=== PATIENT | female | born 1995 | race Caucasian/White ===

== ENCOUNTER 2021-12-06 08:38 | Emergency (ER) | payer SELFPAY ==
[2021-12-06 08:44] VITALS: BP 148/90; PULSE 105; RESP 18; TEMP 36.9; O2SAT 98; BMI 31.1
[2021-12-06 09:54] LABS: COVID-19 Test Negative (Negative)
[2021-12-06 09:58] LABS: Influenza A Positive (Negative); Influenza B2 Negative (Negative)
--- NOTE | 2021-12-06 09:58 | ED_ITS ---
HPI - General Adult General Chief complaint: General Medical Stated complaint: sore throat Time Seen by Provider: 12/06/21 09:27 Source: patient Mode of arrival: ambulatory Limitations: no limitations History of Present Illness HPI narrative: 26-year-old female presents to the ED for sore throat since yesterday. Patient states her daughter and also have sore throat. Patient states she is not vaccinated. Patient denies any chest pain, shortness of breath, coughing, abdominal pain, diarrhea, leg swelling, calf pain, weakness, dizziness, or any other concerning symptoms. Related Data Previous Rx's Medication Instructions Recorded oseltamivir 75 mg capsule (Tamiflu) 75 mg PO BID 5 Days #10 cap 12/06/21 Allergies Allergy/AdvReac Type Severity Reaction Status Date / Time No Known Allergies Allergy Unverified 06/10/20 17:41 Review of Systems Review of Systems: Sore throat Yes all other systems are reviewed and are negative PMFSH Social History Social History Advance Directives: No Advance Directives Information Provided: No Patient : No Physical Exam ED Vital Signs: Vital Signs - 24 hr 12/06/21 08:44 Temperature 98.5 F Pulse Rate 105 H Respiratory Rate 18 Blood Pressure 148/90 H Pulse Oximetry 98 BMI result Body Mass Index 31.1 Const General: cooperative, healthy appearing, comfortable, no acute distress, well developed, alert, awake and Physically active Orientation/consciousness: patient oriented x3 HENMT Head: Yes normal to inspection, Yes No palpable skull fracture present, Yes normocephalic and Yes atraumatic Ears: hearing grossly normal bilaterally, external ears normal, TM's normal bilaterally, EAC's normal, mastoids normal and no periauricular adenopathy Throat: Yes posterior oropharynx normal, Yes tonsils normal and Yes uvula midline Eyes General: appearance normal, both eyes and all related structures Neck Neck: Yes normal visual inspection, Yes full ROM, Yes no lymphadenopathy, Yes no meningeal signs, Yes trachea midline, Yes supple, No anterior neck swelling and No tender Chest Chest palpation & inspection: normal inspection of the chest and normal palpation of entire chest wall Resp Effort & Inspection: normal respiratory effort and able to speak in complete sentences Auscultation: clear to auscultation bilaterally Cardio Jugular venous distension: no JVD Heart sounds: S1 normal heart sound present and S2 normal heart sound present GI Inspection: Yes normal to inspection and No abdominal wall ecchymosis Palpation (GI): Soft to palpation, not firm, nontender, no guarding and not rigid General: No CVA tenderness and Yes no CVA tenderness Back/Spine/Pelvis Back: no CVA tenderness, No CVA tenderness and No back tenderness Skin General skin exam: no rashes or lesions noted and elasticity normal Neuro General: patient oriented x3, gait normal and no meningeal signs Cranial nerves: Yes CN's II-XII intact bilaterally Extrem General: Yes normal to inspection and Yes full ROM Psych Appearance: grossly normal, well kempt and not disheveled Course Course Course Narrative: patient well-appearing. Will order SARS and strep. Reevaluation(s) Reevaluation #1: influenza positive. Patient well-appearing. Patient educated on oral hydration and rest with pain/Tylenol for fever/ pain relief. Time: 10:37 Medical Decision Making MDM Narrative Medical decision making narrative: INfluenza A Lab Data Labs: Lab Results 12/06/21 12/06/21 12/06/21 Range/Units 08:57 08:57 09:41 COVID-19 ([facility]) Negative (Negative) COVID-19 Clin Com See Note Influenza Type A (DEE) Positive A (Negative) Influenza Type B (DEE) Negative (Negative) Influenza A & B Note See Note S. pyogenes GrpA DEE Negative (Negative) Discharge Plan Discharge Clinical Impression: Influenza A Patient Disposition: Home, Self-Care Instructions: Influenza (ED) Additional Instructions: you are positive for influenza. Return to the ED for any chest pain, shortness of breath, weakness, dizziness, diarrhea, decreased oral/ liquid intake. Abdominal pain, or any other concerning symptoms. Please follow-up with primary care provider Prescriptions: New oseltamivir [Tamiflu] 75 mg capsule 75 mg PO BID 5 Days Qty: 10 0RF Stand Alone Forms: Work/School Release Interventions: ED Discharge Assessment Last Done: 12/06/21 10:47 Discharge Date/Time: 12/06/21 10:47 Print Language: Icelandic
[2021-12-06 10:09] LABS: Strep A Nucleic Acid Negative (Negative)
== END 2021-12-06 10:47 | disposition home or self-care (01) ==
PROVIDERS: Physician Assistant; Emergency Provider Emergency Medicine
DX: J11.1 Influenza due to unidentified influenza virus with other respiratory manifestations (principal); J02.9 Acute pharyngitis, unspecified; Z20.822 Contact with and (suspected) exposure to COVID-19
CPT/HCPCS: 36415; 87502; 87635; 87651; 99283

== ENCOUNTER 2022-04-05 14:25 | Emergency (ER) | payer SELFPAY ==
--- NOTE | ~2022-04-05 | US_ITS ---
EXAMINATION: US pelvic limited CLINICAL INFORMATION: Reason for Exam Left pelvic pain, suprapubic discomfort COMPARISON: None. TECHNIQUE: Transabdominal followed by transvaginal pelvic ultrasound was performed. FINDINGS: Uterus is anteverted measuring 7.6 x 3.5 x 3.9 cm in sagittal, AP, transverse dimensions. Poorly marginated approximately 2 x 1.4 x 1.6 cm probable intramural uterine fibroid noted posteriorly slightly indenting upon the posterior aspect of the endometrial stripe. No other fibroids are seen. Endometrial thickness measures 0.6 cm. Right ovary measures 2.1 x 1.8 x 1.8 cm in size of the volume of 3.7 mL. Left ovary measures 2.3 x 1.9 x 2.5 cm with volume of 5.7 mL. Left ovary contains a small 1.2 cm hypoechoic follicle. Normal dopplerable flow detected in both ovaries. No free pelvic fluid. US/US pelvic limited IMPRESSION: 1. Endometrial thickness of 0.6 cm. 2. Suspected poorly marginated intramural uterine fibroid slightly indenting upon the posterior endometrial cavity measuring approximately2 cm in size. 3. Normal ovaries. No free fluid.
[2022-04-05 15:44] VITALS: BP 147/84; PULSE 63; RESP 18; TEMP 37; O2SAT 99; BMI 30.2
[2022-04-05 16:09] LABS: MANUAL DIFF FLAG NO
[2022-04-05 16:11] LABS: Basophils Percent Auto 0.3 % (0-2); Eosinophils Percent Auto 0.2 % (0-4); Hematocrit 41.5 % (37.0-47.0); Hemoglobin 13.4 g/dl (12.0-16.0); Imm Gran Abs Auto 0.05 X10*3/uL (0.00-0.03); Imm Gran Pct Auto 0.4 % (0.0-0.4); Lymphocytes Absolute Auto 2.3 X10*3/uL (1.2-4.9); Lymphocytes Percent Auto 20.5 % (20-40); Mean Corpuscular HGB Conc 32.3 g/dl (31.0-35.0); Mean Corpuscular Hemoglobin 27.6 pg (27.0-33.0); Mean Corpuscular Volume 85.4 fL (80.0-98.0); Mean Platelet Volume 10.5 fL (9.4-12.3); Monocytes Absolute Auto 0.8 X10*3/uL (0.1-1.2); Monocytes Percent Auto 7.2 % (2-11); Neutrophils Absolute Auto 8.2 x10*3/uL (2.0-8.3); Neutrophils Percent Auto 71.4 % (45-73); Platelet Count 248 X10*3/uL (160-400); Red Blood Count 4.86 X10*6/uL (4.20-5.50); Red Cell Distribution Width 13.3 % (11.0-16.0); White Blood Count 11.4 X10*3/uL (4.8-10.8)
[2022-04-05 16:12] LABS: Appearance Urine HAZY; Color Urine YELLOW; Glucose Urine UA NEG (NEG); Leukocyte Esterase Urine 1+ (NEG); Nitrite Urine NEG (NEG); PH 5.5 (5.0-8.0); UACC Culture Trigger YES; Urine Blood TRACE (NEG); Urine Ketones 15 MG/DL (NEG); Urine Protein 1+ MG/DL (NEG-TRACE)
[2022-04-05 16:13] LABS: UPreg QC Valid YES; Urine Pregnancy NEGATIVE (NEGATIVE)
[2022-04-05 16:22] LABS: Bacteria Urine 1+ /LPF; Mucus Urine 1+ /LPF; Squamous Epithelial Cell Urine 1+ /LPF
[2022-04-05 16:23] LABS: RBC Urine 0-2 /HPF (0)
[2022-04-05 16:27] LABS: Alanine Aminotransferase 10 U/L (0-31); Albumin Level 4.7 g/dL (3.5-5.0); Alkaline Phosphatase 65 U/L (39-117); Anion Gap 14 (12-20); Aspartate Amino Transferase 13 U/L (5-31); Bilirubin Total 1.3 mg/dL (0.0-1.0); Blood Urea Nitrogen 13 mg/dL (9-16); Calcium 9.2 mg/dL (8.4-10.2); Carbon Dioxide 26 mmol/L (22-29); Chloride 104 mmol/L (96-108); Creatinine Clr Calc Pharmacy 108.8; Estimated Glomerular Filt Rate > 60; Glucose Random 95 mg/dL (60-115); Potassium 3.8 mmol/L (3.3-5.1); Sodium 140 mmol/L (135-145); Total Protein 7.9 g/dL (6.5-8.0)
[2022-04-05 18:37] VITALS: BP 145/85; PULSE 72; RESP 18; TEMP 36.4; O2SAT 98
--- NOTE | 2022-04-05 18:38 | ED_ITS ---
HPI - Abdominal Pain General Chief Complaint: Abdominal Pain Stated Complaint: abd pain Time Seen by Provider: 04/05/22 18:09 Source: patient Mode of arrival: ambulatory Limitations: no limitations History of Present Illness HPI narrative: 26-year-old female healthy presents with 3 days of lower abdominal cramping. No nausea, vomiting, diarrhea, urinary symptoms, fevers or chills. No vaginal discharge, rashes or lesion. Related Data Previous Rx's Medication Instructions Recorded oseltamivir 75 mg capsule (Tamiflu) 75 mg PO BID 5 days #10 caps 12/06/21 fluconazole 150 mg tablet 150 mg PO Q3D 2 doses #2 tabs 04/05/22 (Diflucan) metronidazole 500 mg tablet 500 mg PO BID 7 days #14 tabs 04/05/22 nitrofurantoin 100 mg PO Q12H 5 days #10 caps 04/05/22 monohydrate/macrocrystals 100 mg capsule (Macrobid) Allergies Allergy/AdvReac Type Severity Reaction Status Date / Time No Known Allergies Allergy Verified 04/05/22 15:43 Review of Systems Review of Systems Yes all other systems are reviewed and are negative Constitutional: Reports no additional constitutional complaints, Denies body ache(s), Denies chills, Denies fever(s), Denies headache(s) and Denies weakness Eyes: Reports no additional eye complaints and Denies change in vision Reports system reviewed and no additional complaints, except as documented, Denies dizziness, Denies headache(s), Denies nasal congestion, Denies nasal discharge and Denies neck pain Cardiovascular: Reports no additional cardiovascular complaints, Denies chest pain, Denies leg edema and Denies dyspnea Respiratory: Reports no additional respiratory complaints, Denies cough and Denies dyspnea Gastrointestinal: Reports no additional gastrointestinal complaints, Reports abd ominal pain, Denies diarrhea, Denies nausea and Denies vomiting Genitourinary: Reports no additional female genitourinary complaints and Denies urinary incontinence Musculoskeletal: Reports no additional musculoskeletal complaints, Denies back pain, Denies arthralgias, Denies joint swelling, Denies neck pain, Denies numbness and Denies tingling Skin/Breast: Reports system reviewed and no additional complaints, except as docu and Denies rash Reports system reviewed and no additional complaints, except as documented, Denies dizziness, Denies headache(s), Denies numbness, Denies tingling and Denies weakness [facility] Past Medical History Attestation statement: The following information was validated with the patient. Source: old records reviewed and nursing notes reviewed Social History Social History Advance Directives: No Advance Directives Information Provided: No Physical Exam ED Vital Signs: Vital Signs - 24 hr 04/05/22 15:44 04/05/22 18:37 04/05/22 19:54 Temperature 98.6 F 97.6 F 97.0 F Pulse Rate 63 72 74 Respiratory Rate 18 18 16 Blood Pressure 147/84 H 145/85 H 140/82 H Pulse Oximetry 99 98 98 Oxygen Delivery Method Room Air Room Air Room Air BMI result Body Mass Index 30.2 Const General: cooperative, healthy appearing, comfortable and no acute distress Orientation/consciousness: patient oriented x3 Limitations: no limitations HENMT Head: Yes normal to inspection Ears: hearing grossly normal bilaterally Eyes General: appearance normal, both eyes and all related structures Pupils: Equal, round and reactive pupils present Neck Neck: Yes normal visual inspection, Yes full ROM, Yes no lymphadenopathy and Yes no meningeal signs Chest Chest palpation & inspection: normal inspection of the chest Resp Effort & Inspection: normal respiratory effort Auscultation: clear to auscultation bilaterally Cardio Rate: regular rate Rhythm: regular rhythm Peripheral pulses: Peripheral pulses 2+ throughout GI Inspection: Yes normal to inspection Palpation (GI): Soft to palpation and Tenderness to palpation present (GI) (Mild left pelvic and suprapubic tenderness with no rebound or guarding) Other: nerupa tech present General: Yes no CVA tenderness External Female Exam: normal external appearance Speculum Exam - Vagina: abnormal vaginal discharge (thick/white) Speculum Exam - Cervix: normal appearance of the cervix Bimanual exam- vagina & uterus: normal bimanual exam Bimanual Exam- Adnexa, other: normal adnexae Back/Spine/Pelvis Back: no CVA tenderness Thoracic/Lumbar Spine: thoracic and lumbar spine normal to inspection Skin General skin exam: no rashes or lesions noted Neuro General: patient oriented x3, moves all extremities and no meningeal signs Cranial nerves: Yes Equal, round and reactive pupils present Cognition (Neuro): normal cognition Gait exam (Neuro): Normal gait present Extrem General: Yes normal to inspection Course Course Course Narrative: Pelvic ultrasound shows no acute finding. Labs are unremarkable. Patient has a urinalysis that is consistent with UTI. She has thick vaginal white discharge on vaginal exam. Sent testing for BV, Trichomonas, yeast, gonorrhea and chlamydia. She is sexually active with 1 partner. She is not concern for STDs. She would like to send testing but not be treated prophylactically. She is aware she will need to return if she is positive. We there is no pelvic pain on exam, no adnexal tenderness or cervical motion tenderness so PID is less likely. Patient will be treated with Macrobid, Flagyl and Diflucan. Reviewed worrisome signs and symptoms of when to return to the emergency department. Comfortable discharge home. MDM - Abdominal Pain MDM Narrative Medical decision making narrative: 26-year-old female here with 3 days of lower pelvic cramping with no other complaints. On exam she has tenderness to the suprapubic area and left pelvic with no rebound or guarding. Will check labs, UA, pelvic ultrasound, pelvic exam Differential Diagnosis Differential diagnosis narrative:: Considered UTI, PID, ovarian cyst Medical Records Attestation: I reviewed the patient's medical records. Lab Data Attestation: I reviewed the patient's lab results. Result diagrams: 04/05/22 15:51 04/05/22 15:51 Labs: Lab Results 04/05/22 04/05/22 04/05/22 Range/Units 15:51 15:51 15:51 WBC 11.4 H (4.8-10.8) X10*3/uL RBC 4.86 (4.20-5.50) X10*6/uL Hgb 13.4 (12.0-16.0) g/dl Hct 41.5 (37.0-47.0) % MCV 85.4 (80.0-98.0) fL MCH 27.6 (27.0-33.0) pg MCHC 32.3 (31.0-35.0) g/dl RDW 13.3 (11.0-16.0) % Plt Count 248 (160-400) X10*3/uL MPV 10.5 (9.4-12.3) fL Immature Gran % (Auto) 0.4 (0.0-0.4) % Neut % (Auto) 71.4 (45-73) % Lymph % (Auto) 20.5 (20-40) % [place] % (Auto) 7.2 (2-11) % Eos % (Auto) 0.2 (0-4) % Baso % (Auto) 0.3 (0-2) % Lymph # (Auto) 2.3 (1.2-4.9) X10*3/uL [place] # (Auto) 0.8 (0.1-1.2) X10*3/uL Eos # (Auto) 0.0 (0.0-0.4) X10*3/uL Baso # (Auto) 0.0 (0.0-0.2) X10*3/uL Abs Immat Gran (auto) 0.05 H (0.00-0.03) X10*3/uL Absolute Neuts (auto) 8.2 (2.0-8.3) x10*3/uL Absolute Nucleated RBC 0.000 (0.0-0.012) X10*3/uL Nucleated RBC % (auto) 0.0 (0.0-0.2) /100WBC Sodium 140 (135-145) mmol/L Potassium 3.8 (3.3-5.1) mmol/L Chloride 104 (96-108) mmol/L Carbon Dioxide 26 (22-29) mmol/L Anion Gap 14 (12-20) BUN 13 (9-16) mg/dL Creatinine 0.72 (0.5-1.4) mg/dL Estim Creat Clear Calc 108.8 Estimated GFR > 60 Random Glucose 95 (60-115) mg/dL Calcium 9.2 (8.4-10.2) mg/dL Total Bilirubin 1.3 H (0.0-1.0) mg/dL AST 13 (5-31) U/L ALT 10 (0-31) U/L Alkaline Phosphatase 65 (39-117) U/L Total Protein 7.9 (6.5-8.0) g/dL Albumin 4.7 (3.5-5.0) g/dL Urine Color Urine Appearance Urine pH (5.0-8.0) Ur Specific [place] (1.005-1.025) Urine Protein (NEG-TRACE) MG/DL Urine Glucose (UA) (NEG) MG/DL Urine Ketones (NEG) MG/DL Urine Blood (NEG) Urine Nitrite (NEG) Ur Leukocyte Esterase (NEG) Urine RBC (0) /HPF Urine WBC (0-4) /HPF Ur Squamous Epith Cells /LPF Urine Bacteria /LPF Urine Mucus /LPF Urine Test NEGATIVE (NEGATIVE) 04/05/22 Range/Units 15:51 WBC (4.8-10.8) X10*3/uL RBC (4.20-5.50) X10*6/uL Hgb (12.0-16.0) g/dl Hct (37.0-47.0) % MCV (80.0-98.0) fL MCH (27.0-33.0) pg MCHC (31.0-35.0) g/dl RDW (11.0-16.0) % Plt Count (160-400) X10*3/uL MPV (9.4-12.3) fL Immature Gran % (Auto) (0.0-0.4) % Neut % (Auto) (45-73) % Lymph % (Auto) (20-40) % [place] % (Auto) (2-11) % Eos % (Auto) (0-4) % Baso % (Auto) (0-2) % Lymph # (Auto) (1.2-4.9) X10*3/uL [place] # (Auto) (0.1-1.2) X10*3/uL Eos # (Auto) (0.0-0.4) X10*3/uL Baso # (Auto) (0.0-0.2) X10*3/uL Abs Immat Gran (auto) (0.00-0.03) X10*3/uL Absolute Neuts (auto) (2.0-8.3) x10*3/uL Absolute Nucleated RBC (0.0-0.012) X10*3/uL Nucleated RBC % (auto) (0.0-0.2) /100WBC Sodium (135-145) mmol/L Potassium (3.3-5.1) mmol/L Chloride (96-108) mmol/L Carbon Dioxide (22-29) mmol/L Anion Gap (12-20) BUN (9-16) mg/dL Creatinine (0.5-1.4) mg/dL Estim Creat Clear Calc Estimated GFR Random Glucose (60-115) mg/dL Calcium (8.4-10.2) mg/dL Total Bilirubin (0.0-1.0) mg/dL AST (5-31) U/L ALT (0-31) U/L Alkaline Phosphatase (39-117) U/L Total Protein (6.5-8.0) g/dL Albumin (3.5-5.0) g/dL Urine Color YELLOW Urine Appearance HAZY Urine pH 5.5 (5.0-8.0) Ur Specific [place] 1.020 (1.005-1.025) Urine Protein 1+ H (NEG-TRACE) MG/DL Urine Glucose (UA) NEG (NEG) MG/DL Urine Ketones 15 (NEG) MG/DL Urine Blood TRACE (NEG) Urine Nitrite NEG (NEG) Ur Leukocyte Esterase 1+ H (NEG) Urine RBC 0-2 (0) /HPF Urine WBC 1-4 (0-4) /HPF Ur Squamous Epith Cells 1+ /LPF Urine Bacteria 1+ /LPF Urine Mucus 1+ /LPF Urine Test (NEGATIVE) Imaging Data pelvic us: Attestation: I personally reviewed and interpreted this imaging study as follows: Radiologist's impression: FINDINGS: Uterus is anteverted measuring 7.6 x 3.5 x 3.9 cm in sagittal, AP, transverse dimensions. Poorly marginated approximately 2 x 1.4 x 1.6 cm probable intramural uterine fibroid noted posteriorly slightly indenting upon the posterior aspect of the endometrial stripe. No other fibroids are seen. Endometrial thickness measures 0.6 cm. Right ovary measures 2.1 x 1.8 x 1.8 cm in size of the volume of 3.7 mL. Left ovary measures 2.3 x 1.9 x 2.5 cm with volume of 5.7 mL. Left ovary contains a small 1.2 cm hypoechoic follicle. Normal dopplerable flow detected in both ovaries. No free pelvic fluid. US/US pelvic limited IMPRESSION: ? 1. Endometrial thickness of 0.6 cm. 2. Suspected poorly marginated intramural uterine fibroid slightly indenting upon the posterior endometrial cavity measuring approximately2 cm in size. 3. Normal ovaries. No free fluid. Discharge Plan Discharge Clinical Impression: UTI (urinary tract infection), Vaginal discharge Patient Disposition: Home, Self-Care Instructions: Urinary Tract Infection in Women (ED), Vaginal Discharge (ED) Additional Instructions: Your ultrasound looks normal You have a UTI. We are treating you with antibiotics You have vaginal discharge. We sent testing for vaginal infections which take several days to come back. We will call you if they are positive. If you are positive for STDs you will need to return for treatment Prescriptions: New nitrofurantoin monohyd/m-cryst [Macrobid] 100 mg capsule 100 mg PO Q12H 5 Days Qty: 10 0RF Rx Instructions: must administer with a meal/food metronidazole 500 mg tablet 500 mg PO BID 7 Days Qty: 14 0RF fluconazole [Diflucan] 150 mg tablet 150 mg PO Q3D Qty: 2 0RF No Action oseltamivir [Tamiflu] 75 mg capsule 75 mg PO BID 5 Days Qty: 10 0RF Referrals: Physician,None [Primary Care Provider] - Interventions: ED Discharge Assessment Last Done: 04/05/22 20:00 Discharge Date/Time: 04/05/22 20:01
--- NOTE | 2022-04-05 19:23 | PC.NURSE ---
setup and assisted provider with pt pelvic exam.
[2022-04-05 19:54] VITALS: BP 140/82; PULSE 74; RESP 16; TEMP 36.1; O2SAT 98
[2022-04-06 02:22] LABS: CT PCR NOT DETECTED (Not Detect.); NG PCR NOT DETECTED (Not Detect.)
== END 2022-04-05 20:01 | disposition home or self-care (01) ==
PROVIDERS: Nurse Practitioner Family; Emergency Provider Emergency Medicine
DX: N39.0 Urinary tract infection, site not specified (principal); N89.8 Other specified noninflammatory disorders of vagina; Z79.899 Other long term (current) drug therapy
CPT/HCPCS: 36415; 76857; 80053; 81001; 81025; 85025; 87086; 87088; 87186; 87480; 87491; 87510; 87591; 87660; 99283; 99284